=== PATIENT | male | born 1945 | race Caucasian/White ===

== ENCOUNTER 2016-09-05 14:08 | Outpatient (CLI) | payer MEDICARE, OTHER | END 2016-09-05 14:09 | LOC: POD 14:08 | PROVIDERS: ATTEND Podiatrist | DX: M77.31 Calcaneal spur, right foot (principal); B35.1 Tinea unguium; M79.674 Pain in right toe(s); M79.675 Pain in left toe(s) | CPT/HCPCS: 11721; G0463 ==

== ENCOUNTER 2016-09-11 10:07 | Outpatient (CLI) | payer MEDICARE, OTHER ==
--- NOTE | 2016-09-11 13:46 | Diagnostic Imaging Report ---
SHANKAR JARVIS [facility] [address] [facility] [address] [address] Report Submission Date: September 11, 2016 11:57:24 AM CDT Patient Study Name: MIRZA COSME Date: September 11, 2016 10:21:32 AM CDT Modality Type: CR Gender: M Description: LOWER EXTREMITY : 45 Institution: [facility] Physician: SHANKAR JARVIS Right foot - three views Clinical history: Calcaneal pain. Findings: Examination of the right foot in plantar, lateral and oblique views demonstrates degenerative changes with narrowing of the interphalangeal joints and the first metatarsophalangeal joint. There is no evident fracture and no lytic or blastic lesion. Calcaneal spurs are seen on the lateral view. Impression: 1. Degenerative changes. 2. No fracture. Electronically signed on September 11, 2016 11:57:24 AM CDT by: Francisco GAONA
== END 2016-09-11 10:10 ==
LOC: RAD 10:07
PROVIDERS: ATTEND Podiatrist
DX: M77.31 Calcaneal spur, right foot (principal)
CPT/HCPCS: 73630

== ENCOUNTER 2016-09-26 15:39 | Outpatient (CLI) | payer MEDICARE, OTHER | END 2016-09-26 15:40 | LOC: POD 15:39 | PROVIDERS: ATTEND Podiatrist | DX: M72.2 Plantar fascial fibromatosis (principal); M54.31 Sciatica, right side | CPT/HCPCS: G0463 ==

== ENCOUNTER 2016-12-01 12:49 | Outpatient (CLI) | payer MEDICARE, OTHER | END 2016-12-01 13:01 | LOC: POD 12:49 | PROVIDERS: ATTEND Podiatrist | DX: B35.1 Tinea unguium (principal); M79.674 Pain in right toe(s); M79.675 Pain in left toe(s) | CPT/HCPCS: 11721; G0463 ==

== ENCOUNTER 2017-03-02 12:52 | Outpatient (CLI) | payer MEDICARE, OTHER | END 2017-03-02 12:53 | LOC: POD 12:52 | PROVIDERS: ATTEND Podiatrist | DX: B35.1 Tinea unguium (principal); M79.675 Pain in left toe(s); M79.674 Pain in right toe(s) | CPT/HCPCS: 11721; G0463 ==

== ENCOUNTER 2017-06-12 13:21 | Outpatient (CLI) | payer MEDICARE, OTHER | END 2017-06-12 13:22 | LOC: POD 13:21 | PROVIDERS: ATTEND Podiatrist | DX: B35.1 Tinea unguium (principal); M79.674 Pain in right toe(s); M79.675 Pain in left toe(s); M77.31 Calcaneal spur, right foot; M54.31 Sciatica, right side | CPT/HCPCS: 11721; G0463 ==

== ENCOUNTER 2017-09-14 13:50 | Outpatient (CLI) | payer MEDICARE, OTHER | END 2017-09-14 14:00 | LOC: POD 13:50 | PROVIDERS: ATTEND Podiatrist | DX: B35.1 Tinea unguium (principal); M79.674 Pain in right toe(s); M79.675 Pain in left toe(s); M77.31 Calcaneal spur, right foot; M54.31 Sciatica, right side | CPT/HCPCS: 11721; G0463 ==

== ENCOUNTER 2018-07-31 11:53 | Outpatient (CLI) | payer MEDICARE, OTHER ==
--- NOTE | 2018-07-31 13:13 | Diagnostic Imaging Report ---
<p>Your browser does not support iframes.</p> TORSTEN SANTOS [facility] [address] [facility].[address] [address] Report Submission Date: Jul 31, 2018 12:23:07 PM CDT Patient Study Name: EARNEST COSME Date: Jul 31, 2018 11:58:20 AM CDT Modality Type: DX Gender: M Description: FOOT 3 VIEWS OR MORE : 45 Institution: [facility] Physician: TORSTEN SANTOS EXAMINATION: FOOT 3 VIEWS OR MORE HISTORY: FOOT PAIN FOR 3 MONTHS COMPARISON: None FINDINGS: The osseous structures are intact and well aligned without acute fracture or dislocation. There is mild degenerative change predominately involving the 1st digit and midfoot. The bones are diffusely demineralized. There is a plantar calcaneal spur. IMPRESSION: Mild degenerative changes and a calcaneal spur without acute fracture or dislocation identified. Electronically signed on Jul 31, 2018 12:23:07 PM CDT by: Gray GAONA
== END 2018-07-31 12:10 ==
LOC: RAD 11:53
PROVIDERS: ATTEND Podiatrist Foot & Ankle Surgery
DX: M77.32 Calcaneal spur, left foot (principal); M89.8X7 Other specified disorders of bone, ankle and foot; M79.672 Pain in left foot
CPT/HCPCS: 73630

== ENCOUNTER 2018-09-12 13:59 | Outpatient (CLI) | payer MEDICARE, OTHER | END 2018-09-12 14:02 | LOC: POD 13:59 | PROVIDERS: ATTEND Podiatrist Foot & Ankle Surgery | DX: M19.072 Primary osteoarthritis, left ankle and foot (principal) | CPT/HCPCS: 20605 ==

== ENCOUNTER 2018-09-30 16:34 | Outpatient (CLI) | payer MEDICARE, OTHER ==
--- NOTE | 2018-10-18 10:37 | Diagnostic Imaging Report ---
Manisha Yates [facility] [address] [facility] [address] [place], [place]. [address] Report Submission Date: Sep 30, 2018 6:29:45 PM CDT Patient Study Name: EARNEST COSME Date: Sep 30, 2018 4:34:31 PM CDT Modality Type: CT\SR Gender: M Description: CT RENAL STONE : 45 Institution: [facility] Physician: Manisha Yates Exam: CT abdomen and pelvis. History: Left flank pain. Axial images through the abdomen and pelvis without oral or IV contrast is submitted along with sagittal and coronal reformatted images. Subtle patchy infiltrates in the visualized lower lung leigh are identified. No free intraperitoneal air is identified. The gallbladder is distended without stones. The liver, spleen and pancreas are normal attenuation without space-occupying lesion. The adrenal glands are normal configuration. The abdominal aorta is of normal caliber and associated with atherosclerotic plaque. No periaortic lymphadenopathy is identified. Multiple bilateral renal cysts are identified. The largest on the right is noted in the upper pole measuring 7.0 x 5.1 cm in greatest diameter. The largest on the left appears to be parapelvic measuring 5.6 x 4.5 cm in greatest diameter. Punctate calcifications in the renal collecting systems on the left are noted calcification in the cortex of the upper pole of the left kidney is also noted. No hydronephrosis or hydroureter is identified. The urinary bladder is only partially distended. Some extrinsic pressure on the floor of the urinary bladder due to a prominent prostate gland is identified. The small bowel is of normal caliber. Air and stool seen throughout the large intestine. The visualized appendix is of normal configuration. No inflammatory changes in the mesentery or ascites is identified. Old compression deformity to the superior endplate of L1 is noted. Disc space narrowing with endplate sclerosis, spurring and vacuum phenomena is seen at multiple levels of the lumbar spine and lower thoracic spine. Impression: Multiple bilateral renal cysts are identified. The largest in the upper pole of the right kidney measures 7.0 x 5.1 cm while the largest on the left side is seen parapelvic measuring 5.6 x 4.5 cm. Multiple renal stones and calcifications on the left side are seen. No hydronephrosis is identified. Prominent prostate gland. Nonspecific bowel gas pattern. No inflammatory changes in the mesentery or ascites is identified. Electronically signed on Sep 30, 2018 6:29:45 PM CDT by: Stevenson GAOAN
== END 2018-09-30 16:39 | disposition home or self-care (01) ==
LOC: RAD 16:34
PROVIDERS: ATTEND Nurse Practitioner Family
DX: R10.32 Left lower quadrant pain (principal)
CPT/HCPCS: 74176

== ENCOUNTER 2018-11-11 11:09 | Outpatient (CLI) | payer MEDICARE, OTHER ==
[2018-11-11 12:01] LABS: SEGMENTED NEUTROPHILS % 78 % (39-79)
[2018-11-11 12:02] LABS: OVALOCYTES 2+ (NEGATIVE)
== END 2018-11-11 11:11 ==
LOC: LAB 11:09
PROVIDERS: ATTEND Family Medicine
DX: D50.9 Iron deficiency anemia, unspecified (principal); M62.82 Rhabdomyolysis
CPT/HCPCS: 36415; 83540; 85025